=== PATIENT | female | born 1990 | race Caucasian/White ===

== ENCOUNTER 2025-06-08 08:13 | Emergency (ER) | payer OTHER, SELFPAY ==
[2025-06-08] MEDS ORDERED: Amoxicillin/Potassium Clav 875 MG TAB ONE (08:48)
== END 2025-06-08 08:56 | disposition home or self-care (01) ==
LOC: MADERS 08:13
DX: J01.40 Acute pansinusitis, unspecified (principal); E66.9 Obesity, unspecified
CPT/HCPCS: 99283